=== PATIENT | male | born 2005 | race Two or more races ===

== ENCOUNTER 2024-09-08 02:18 | Emergency (ER) | payer MEDICAID, OTHER ==
[~2024-09-08] VITALS: Ht 175.3 cm; Wt 114.0 kg
[2024-09-08 02:25] VITALS: BP 146/86; PULSE 102; RESP 16; TEMP 99.9; O2SAT 98
[2024-09-08] MEDS: HYDROcodone-ACET 5/325MG TAB PO ONE (03:15)
== END 2024-09-08 05:53 | disposition home or self-care (01) ==
LOC: ER 02:18 → EDBD 02:18 → ER 05:53
DX: S00.83XA Contusion of other part of head, initial encounter (principal); Y04.2XXA Assault by strike against or bumped into by another person, initial encounter; Y93.89 Activity, other specified; Y92.89 Other specified places as the place of occurrence of the external cause; Y99.8 Other external cause status
CPT/HCPCS: 70450; 70486